=== PATIENT | male | born 1985 | race Caucasian/White ===

== ENCOUNTER 2019-10-23 13:25 | Outpatient (CLI) | payer BC, SELFPAY ==
--- NOTE | ~2019-10-23 | US_ITS ---
EXAMINATION: US right upper quadrant EXAM DATE: 10/23/2019 14:03 INDICATION: Right upper quadrant pain. TECHNIQUE: Multiple grayscale and Doppler images of the abdomen right upper quadrant were obtained (b y a technologist who performed the scan) and subsequently reviewed. There is no prior study for guzman [place]. FINDINGS: The pancreatic head and body are normal in appearance. The pancreatic tail is not visualized. The l iver has normal echogenicity and contour. There are no focal liver lesions identified. There is no evidence of intrahepatic biliary duct dilation. Portal venous flow was seen in the hepatopedal, nor mal direction and has normal Doppler waveform. No right-sided hydronephrosis. Common bile duct measures 3 mm, which is normal. The gallbladder wall is normal in thickness, with ex pected amount of distention. No sonographic evidence of pericholecystic fluid. There is no cholelit hiases. Technologist performing exam reports patient did not demonstrate sonographic Nava's sign. Please note that this sign is less reliable in patients who have received pain medication. IMPRESSION: Unremarkable abdominal ultrasound exam. Reviewed, dictated and finalized at location B. TORCH BRAZIER
== END 2019-10-23 13:26 | disposition home or self-care (01) ==
PROVIDERS: Visit Provider Student in an Organized Health Care Education/Training Program
DX: R10.11 Right upper quadrant pain (principal)
CPT/HCPCS: 76705

== ENCOUNTER 2020-09-08 06:51 | Outpatient (NON) | payer BC, SELFPAY ==
[2020-09-09 00:16] LABS: SARS-CoV-2 RNA PCR Negative
== END 2020-09-08 06:52 ==
LOC: ANHCOVIDDT 07:06
PROVIDERS: PCP Student in an Organized Health Care Education/Training Program; Visit Provider Student in an Organized Health Care Education/Training Program
DX: R52 Pain, unspecified (principal); R51.9 Headache, unspecified; Z20.822 Contact with and (suspected) exposure to COVID-19
CPT/HCPCS: C9803; U0003; U0005

== ENCOUNTER 2025-02-03 10:58 | Outpatient (CLI) | payer OTHER, SELFPAY ==
--- NOTE | ~2025-02-03 | US_ITS ---
EXAMINATION: US soft tissue groin RT, US soft tissue groin LT DATE: 02/03/2025 11:53 INDICATION: BI Groin Pain . TECHNIQUE: Grayscale and Doppler ultrasound images of the bilateral inguinal canals were obtained. COMPARISON: None. FINDINGS: The bilateral inguinal canals were sonographically interrogated, revealing no solid or cyst ic lesions. No herniation detected. No concerning changes with the Valsalva maneuver. IMPRESSION: Normal bilateral groin sonographic findings. No hernias detected. Reviewed, dictated and finalized at location K. IMPRESSION: Normal bilateral groin sonographic findings. No hernias detected.
== END 2025-02-03 10:59 | disposition home or self-care (01) ==
PROVIDERS: PCP Student in an Organized Health Care Education/Training Program; Visit Provider Student in an Organized Health Care Education/Training Program
DX: R10.32 Left lower quadrant pain (principal)
CPT/HCPCS: 76882